=== PATIENT | female | born 1935 | race Caucasian/White ===

== ENCOUNTER 2016-09-10 05:55 | Day surgery (SDC) | payer OTHER ==
[~2016-09-10] VITALS: Ht 170.2 cm; Wt 65.0 kg
[~2016-09-10 05:55] MED LIST: AMLODIPINE BESYL5 MG PO; BACTRIM,SEPT1 TABLET PO; Bactrim,Septra DS 80 PO; CLEOCIN300 MG PO; ELIQUIS5 MG PO; FENOFIBRATE160 M1 PO; FENOFIBRATE160 MG PO; FLAGYL250 MG PO; GLUCOPHAGE500 MG PO; IMODIUM2 MG PO; LANOXIN,DIGIT0.25 MG PO; LANOXIN250 MCG PO; LASIX20 MG PO; LO-DOSE ASPIRIN81 M2 PO; LUTEIN20 M1 PO; METOPROLOL SUCC25 MG PO; MIRALAX255 GM PO; NEXIUM40 MG PO; NITROSTAT0.4 MG SL; PRAVACHOL20 MG PO; PRAVACHOL40 MG PO; PRINIVIL20 MG PO; Tylenol Regular Stre PO; XANAX0.25 MG PO; XANAX0.5 MG PO; Zestril,Prinivil PO; [UNRECOGNIZED DRUG - OTHER]
[2016-09-10] MEDS ORDERED: ELIQUIS5 MG PO (07:30)
[2016-09-10] MEDS ORDERED: NATURAL LUTEIN20 MG PO (07:33)
[2016-09-10 07:36] VITALS: BP 161/71
[2016-09-10 07:41] LABS: POINT-OF-CARE METER ID UU14174212
[2016-09-10 09:54] VITALS: BP 144/64
[2016-09-10 10:07] LABS: POINT-OF-CARE METER ID UU14174212
[2016-09-10 10:52] VITALS: BP 157/79
[2016-09-10 13:00] VITALS: BP 146/79
== END 2016-09-10 13:20 | disposition home or self-care (01) ==
LOC: SDC 05:55
PROVIDERS: Urology
PROC: 0T788DZ Dilation of Bilateral Ureters with Intraluminal Device, Via Natural or Artificial Opening Endoscopic (ICD-10-PCS; principal; 2016-09-10)
DX: N13.30 Unspecified hydronephrosis (principal); N81.89 Other female genital prolapse; E11.9 Type 2 diabetes mellitus without complications; I48.0 Paroxysmal atrial fibrillation; R53.83 Other fatigue; I10 Essential (primary) hypertension; Z86.718 Personal history of other venous thrombosis and embolism; Z88.8 Allergy status to other drugs, medicaments and biological substances; Z79.01 Long term (current) use of anticoagulants; Z79.84 Long term (current) use of oral hypoglycemic drugs
CPT/HCPCS: 74000; 76000; 82948; C1876; J0690; J2250; J2405; J3010

== ENCOUNTER 2016-09-11 11:48 | Inpatient (IN) | payer OTHER ==
[~2016-09-11] VITALS: Ht 170.2 cm; Wt 65.2 kg
[~2016-09-11 11:48] MED LIST changes: +NATURAL LUTEIN20 MG PO
[2016-09-11 12:36] LABS: POINT-OF-CARE METER ID UU13113819
[2016-09-11 12:53] VITALS: BP 137/64
[2016-09-11 18:39] LABS: POINT-OF-CARE METER ID UU13113675
[2016-09-11 20:10] VITALS: BP 165/77
[2016-09-11 22:10] LABS: HEMATOCRIT 29.6 % (36.0-46.0); MCH 28.6 PG (29.0-34.0); MCHC 31.8 G/DL (30.0-36.0); MEAN PLAT.VOLUME 10.3 uM^3 (9.5-12.4); PLATELET COUNT 329 K/uL (156-360); RBC DIS.WIDTH-CV 13.8 % (11.8-14.6); RBC DIS.WIDTH-SD 45.1 % (39-53); RED BLOOD COUNT 3.29 M/uL (3.80-5.20); WHITE BLOOD COUNT 5.7 K/uL (4.1-10.2)
[2016-09-11 22:30] LABS: ANION GAP 13 MEQ/L (2-14); CHLORIDE 104 MEQ/L (99-109); GFR ESTIMATE (CALCULATED) > 59 mL/min/; GLUCOSE 244 mg/dL (70-99); POTASSIUM 3.7 MEQ/L (3.7-5.4); SAMPLE HEMOLYSIS CHECK 0; SAMPLE ICTERIC CHECK 0; SAMPLE LIPEMIA CHECK 0; SODIUM 141 MEQ/L (136-147); UREA NITROGEN (BUN) 21 mg/dL (9-23)
[2016-09-11 23:30] VITALS: BP 126/62
[2016-09-12 00:38] LABS: POINT-OF-CARE METER ID UU14162508
[2016-09-12 03:36] VITALS: BP 148/67
[2016-09-12 05:13] LABS: HEMATOCRIT 27.7 % (36.0-46.0); MCH 28.4 PG (29.0-34.0); MCHC 31.8 G/DL (30.0-36.0); MCV 89.4 FL (83-99); MEAN PLAT.VOLUME 10.5 uM^3 (9.5-12.4); PLATELET COUNT 334 K/uL (156-360); RBC DIS.WIDTH-CV 13.8 % (11.8-14.6); RBC DIS.WIDTH-SD 44.8 % (39-53)
[2016-09-12 05:39] LABS: ANION GAP 10 MEQ/L (2-14); CHLORIDE 103 MEQ/L (99-109); GFR ESTIMATE (CALCULATED) > 59 mL/min/; GLUCOSE 157 mg/dL (70-99); POTASSIUM 3.9 MEQ/L (3.7-5.4); SAMPLE HEMOLYSIS CHECK 0; SAMPLE ICTERIC CHECK 0; SAMPLE LIPEMIA CHECK 0; SODIUM 140 MEQ/L (136-147); UREA NITROGEN (BUN) 20 mg/dL (9-23)
[2016-09-12 07:50] VITALS: BP 167/69
[2016-09-12 12:06] VITALS: BP 168/72
[2016-09-12 15:54] VITALS: BP 170/76
[2016-09-12 19:20] VITALS: BP 139/64
[2016-09-12 23:28] VITALS: BP 140/66
[2016-09-13 03:45] VITALS: BP 151/66
[2016-09-13 07:27] VITALS: BP 165/82
[2016-09-13 08:22] LABS: HEMATOCRIT 29.8 % (36.0-46.0); MCHC 31.5 G/DL (30.0-36.0); MCV 88.7 FL (83-99); MEAN PLAT.VOLUME 10.3 uM^3 (9.5-12.4); PLATELET COUNT 366 K/uL (156-360); RBC DIS.WIDTH-SD 45.4 % (39-53); RED BLOOD COUNT 3.36 M/uL (3.80-5.20); WHITE BLOOD COUNT 6.6 K/uL (4.1-10.2)
[2016-09-13 08:31] LABS: ANION GAP 10 MEQ/L (2-14); CHLORIDE 103 MEQ/L (99-109); GFR ESTIMATE (CALCULATED) > 59 mL/min/; GLUCOSE 157 mg/dL (70-99); POTASSIUM 3.8 MEQ/L (3.7-5.4); SAMPLE HEMOLYSIS CHECK 0; SAMPLE ICTERIC CHECK 0; SAMPLE LIPEMIA CHECK 0; SODIUM 140 MEQ/L (136-147); UREA NITROGEN (BUN) 13 mg/dL (9-23)
[2016-09-13] MEDS ORDERED: PROTONIX20 MG PO (09:31)
== END 2016-09-13 10:55 | disposition home health service (06) | DRG 747 ==
LOC: SDC 11:48 → EDSTATUS 11:53 → SDC 11:55 → 2SOUTH 12:01 → 2EASTP 17:54 → 2SOUTH 17:54 → 2EASTP 19:57
PROVIDERS: Obstetrics & Gynecology Gynecologic Oncology
DX: N81.3 Complete uterovaginal prolapse (principal)
CPT/HCPCS: 80048; 82948; 85027; 86850; 86900; 86901; 86920; 88302; J0131; J0330; J1100; J1170; J1580; J1650; J1815; J2270; J2405; J2710; J2765; J3010; J7050; J7120; S0030